=== PATIENT | male | born 1995 | race Caucasian/White ===

== ENCOUNTER 2023-06-09 14:36 | Outpatient (AMB) | payer OTHER, SELFPAY ==
--- NOTE | 2023-06-09 14:56 | MHC.OFFWIV ---
Intake Vital Signs 06/09/23 15:02 Height 5 ft 11 in Weight 212 lb BMI 29.6 BP 128/76 Blood Pressure Location Lt brachial Position Sitting Pulse 76 Pulse Source Pulse Oximeter Temp 98.3 F Temp Source Temporal Artery Scan Pulse Oximetry (%) 98 Oxygen Delivery Method Room Air Intake Visit Reasons: EP, Fever 102 ([phone]) Intake Note: pt is here for c/o fever Patient Tobacco Use Status: Never used Tobacco Allergies No Known Allergies Allergy (Verified 06/09/23 15:02) Do you need a note to return to daycare/school/sports/work: Yes HPI HPI Comments History of Present Illness Details This is a 27-year-old male with no stated past medical history presenting for evaluation of a febrile illness. Patient states he was at work yesterday when he suddenly developed chills, body aches and general malaise. Patient states he has a very mild cough and chest congestion. Patient states his temperature this morning was 102? for which he took Tylenol. Patient denies having a headache, visual changes, neck pain, chest pain, sore throat, abdominal pain, dysuria, urinary frequency, nausea or vomiting. Patient also denies having any recent sick contacts. He took a test for COVID-19 yesterday evening which was negative. [facility] Social History Patient Tobacco Use Status: Never used Tobacco Review of Systems Const All systems reviewed & are unremarkable except as noted in HPI and below Eyes Reports as per HPI ENT Reports no additional complaints Card Reports as per HPI and Denies dyspnea Resp Reports as per HPI, Reports cough, Denies hemoptysis, Denies dyspnea and Denies wheezing GI Reports as per HPI Psych Reports no additional complaints Aller/Immun Denies wheezing Physical Exam Vital Signs: Last Vital Signs Temp 98.3 F 06/09/23 15:02 Pulse 76 06/09/23 15:02 BP 128/76 06/09/23 15:02 Pulse Ox 98 06/09/23 15:02 Oxygen Delivery Method Room Air 06/09/23 15:02 BMI result Body Mass Index 29.6 Patient is afebrile at this time. Const General: cooperative, healthy appearing, comfortable, no acute distress, alert and awake Nutritional Appearance: average body habitus Orientation/consciousness: patient oriented x3 Limitations: no limitations HEENT Head: Yes normal to inspection Ears: hearing grossly normal bilaterally, external ears normal, TM's normal bilaterally and EAC's normal General nose exam: Normal external nose present Face and sinus: Yes normal facial exam and Yes sinuses nontender Mouth: Normal oral and palatal mucosa present Teeth and gingiva: dentition normal Throat: Yes postnasal drainage and Yes other ( There is no edema, exudates or erythema of the posterior oropharynx.) Eyes General: appearance normal, both eyes and all related structures Conjunctivae: conjunctivae normal Sclerae: sclerae normal Corneas: corneas normal Pupils: Equal, round and reactive pupils present EOM: EOMs intact bilaterally Neck Lymphatic: no lymphadenopathy noted Resp Effort & Inspection: normal respiratory effort, able to speak in complete sentences and no use of accessory muscles Auscultation: clear to auscultation bilaterally Cardio Rate: regular rate Rhythm: regular rhythm GI Palpation (GI): Soft to palpation, nontender and no guarding Auscultation: normal bowel sounds Skin General skin exam: no rashes or lesions noted Neuro General: patient oriented x3 Cranial nerves: Yes Equal, round and reactive pupils present Psych Appearance: grossly normal Mental Status: mental status grossly normal Insight: Good insight present (Psych) Judgement: Good judgement present (Psych) Assessment & Plan Assessment & Plan (1) Cough: Code(s): R05.9 - Cough, unspecified Plan: Given the sudden onset of his symptoms with a reported fever, patient will be tested for COVID-19, influenza and RSV. This testing is initiated and pending. (2) Febrile illness, acute: Code(s): R50.9 - Fever, unspecified Plan: Results of viral testing pending at this time. Orders: Orders SARS-CoV2/FLU/RSV Today R05.9 - Cough, unspecified, R50.9 - Fever, unspecified Coding Level of Care Code New Pt Level 3 (24398) Diagnoses Cough R05.9 Febrile illness, acute R50.9 Time Spent (min) 25
[2023-06-09 15:02] VITALS: BP 128/76; PULSE 76; TEMP 36.8; O2SAT 98; BMI 29.6
== END 2023-06-09 15:55 | disposition home or self-care (01) ==
PROVIDERS: Visit Provider Physician Assistant
DX: R05.9 Cough, unspecified (principal); R50.9 Fever, unspecified
CPT/HCPCS: 99203

== ENCOUNTER 2023-06-09 16:30 | Outpatient (REF) | payer OTHER, SELFPAY ==
[2023-06-09 17:24] LABS: Influenza A PCR NEGATIVE (Negative); Influenza B PCR NEGATIVE (Negative); Resp Syncy Virus RNA Qual PCR NEGATIVE (Negative); SARS COV2 PCR INHOUSE POSITIVE (Negative)
== END 2023-06-09 16:31 | disposition home or self-care (01) ==
LOC: HO.HMGCLNP 16:30
PROVIDERS: Visit Provider Physician Assistant
DX: Z11.52 Encounter for screening for COVID-19 (principal); R50.9 Fever, unspecified; R05.9 Cough, unspecified
CPT/HCPCS: 0241U